=== PATIENT | female | born 1955 | race Asian ===

== ENCOUNTER 2016-10-27 09:03 | Day surgery (SDC) | payer OTHER ==
[2016-10-27] VITALS (7 sets, daily range): BP systolic 108–158; BP diastolic 63–95; PULSE 66–98; RESP 14–20; Ht 152.4 cm; Wt 48.0 kg
[~2016-10-27] VITALS: Ht 152.4 cm; Wt 48.0 kg
[~2016-10-27 09:03] MED LIST: LIDOCAINE 2% (SDV) 5 ML INJ ONE
[2016-10-27] MEDS ORDERED: ESTR-19 PO (09:38)
[2016-10-27] MEDS ORDERED: PANT20TA2 PO (09:42)
[2016-10-27] MEDS ORDERED: LIPA1CAP6 PO (09:42)
[2016-10-27] MEDS ORDERED: CEFAZOLIN 2 GM/50 ML (PMX) 50 ML IVPB SCH (10:00)
[2016-10-27] MEDS ORDERED: SOD CHLORIDE 0.9% 1,000 ML IV SCH (10:00)
[2016-10-27 10:31] LABS: ADD SCAN DIFF NO
[2016-10-27 10:34] LABS: BASOPHILS % 0.4 % (0.0-2.0); EOSINOPHILS # 0.1 10^3/ul (0.0-0.5); EOSINOPHILS % 1.6 % (0.0-7.0); HEMATOCRIT 39.1 % (37.0-47.0); HEMOGLOBIN 13.3 g/dl (12.0-16.0); LYMPHOCYTES # 2.1 10^3/ul (0.8-2.9); LYMPHOCYTES % 43.4 % (15.0-51.0); MEAN CORPUSCULAR HEMOGLOBIN 31.1 pg (29.0-33.0); MEAN CORPUSCULAR VOLUME 91.6 fl (82.0-101.0); MONOCYTE # 0.2 10^3/ul (0.3-0.9); MONOCYTES % 4.3 % (0.0-11.0); NEUTROPHIL # 2.4 10^3/ul (1.6-7.5); NEUTROPHILS % 50.1 % (39.0-77.0); PLATELET COUNT 240 10^3/UL (140-415); RED BLOOD COUNT 4.27 10^6/ul (4.20-5.40); RED CELL DISTRIBUTION WIDTH 11.3 % (11.5-14.5); WHITE BLOOD COUNT 4.9 10^3/ul (4.8-10.8)
--- NOTE | 2016-10-27 10:36 | RADRPT ---
PROCEDURE: Chest Radiograph. CLINICAL INDICATION: Preop. Left flank mass resection. TECHNIQUE: Single frontal chest radiograph. COMPARISON: None available FINDINGS: The cardiomediastinal silhouette is within normal limits. No infiltrate or effusion is seen. Th e bones are intact. Tiny linear hyperdensities overlying the bilateral supraclavicular regions are related to prior acupuncture. IMPRESSION: 1. No evidence of active cardiopulmonary disease. RPTAT: AA .Mason Conklin MD, MD Date Time Electronically viewed and signed by .Mason Conklin MD, on 10/27/2016 10:36 .B/
[2016-10-27 10:50] LABS: ALBUMIN 4.1 g/dl (3.3-4.9)
[2016-10-27 10:51] LABS: INR 0.92; PROTIME 12.4 Sec (12.2-14.2)
[2016-10-27 10:52] LABS: ALBUMIN/GLOBULIN RATIO 1.32; BILIRUBIN,INDIRECT 0.2 mg/dl (0-1.1); BILIRUBIN,TOTAL 0.2 mg/dl (0.2-1.3); PARTIAL THROMBOPLASTIN TIME 25.4 Sec (25.0-35.0); TOTAL PROTEIN 7.2 g/dl (6.1-8.1)
[2016-10-27 11:01] LABS: CALCIUM 8.9 mg/dl (8.4-10.2); CREATININE 0.59 mg/dl (0.44-1.00)
[2016-10-27] MEDS ORDERED: PROPOFOL 20 ML ONE (11:15)
[2016-10-27] MEDS ORDERED: ROCURONIUM 50 MG INJ ONE (11:15)
[2016-10-27] MEDS ORDERED: CEFAZOLIN 1 GM INJ ONE (11:15)
[2016-10-27] MEDS ORDERED: NEOSTIGMINE 3 MG/3 ML SYRINGE ONE (11:15)
[2016-10-27] MEDS ORDERED: GLYCOPYRROLATE 0.4 MG INJ ONE (11:15)
[2016-10-27] MEDS ORDERED: FENTAnyl 50 MCG/ML VIAL ONE (11:15)
[2016-10-27] MEDS ORDERED: MIDAZOLAM 1 MG/ML 2 ML INJ ONE (11:15)
[2016-10-27] MEDS ORDERED: ONDANSETRON 4 MG INJ ONE (11:15)
[2016-10-27] MEDS ORDERED: DEXAMETHASONE 4 MG/ML 1 ML INJ ONE (11:16)
--- NOTE | 2016-10-27 11:32 | RADRPT ---
Vent Rate: 65 bpm RR Interval: 0 msec SD Interval: 190 msec QRS Duration: 94 msec QT Interval: 436 msec QTC Interval: 453 msec P-R-T Filion: 78 - 94 - 81 degrees Normal sinus rhythm Rightward axis Borderline ECG Electronically Signed By: Marvin Rawls [id number]
[2016-10-27] MEDS ORDERED: ONDANSETRON 4 MG INJ IV PRN (12:00)
[2016-10-27] MEDS ORDERED: MIDAZOLAM 1 MG/ML 2 ML INJ IV PRN (12:00)
[2016-10-27] MEDS ORDERED: EPHEDrine SULFATE 50 MG/5 ML SYG IV PRN (12:00)
[2016-10-27] MEDS ORDERED: FENTAnyl 50 MCG/ML VIAL IV PRN ×3 (12:00)
[2016-10-27] MEDS ORDERED: hydrALAzine 20 MG INJ IV PRN (12:00)
[2016-10-27] MEDS ORDERED: HYDROmorphONE (0.2 MG/ML) 10ML SYG IV PRN ×3 (12:00)
[2016-10-27] MEDS ORDERED: DIPHENHYDRAMINE 50 MG INJ IV PRN (12:00)
[2016-10-27] MEDS ORDERED: TRIMETHOBENZAMIDE 100 MG/ML VIAL IM PRN (12:00)
[2016-10-27] MEDS ORDERED: MEPERIDINE 25 MG INJ IV PRN (12:00)
[2016-10-27] MEDS ORDERED: LABETALOL HCL 20MG INJ IV PRN (12:00)
[2016-10-27] MEDS ORDERED: SUGAMMADEX SODIUM 200 MG/2 ML VIAL IV ONE (12:08)
--- NOTE | 2016-10-27 12:49 | OPR ---
DATE OF OPERATION: 10/27/2016 PREOPERATIVE DIAGNOSIS: Left flank mass. POSTOPERATIVE DIAGNOSIS: Left flank mass. OPERATION PERFORMED: Resection of left flank mass with local skin flap advancement closure. ANESTHESIA: General. ANESTHESIOLOGIST: Kenny Martinez MD SURGEON: Augusto Khalil MD WELDING MACHINE OPERATOR ELECTRON BEAM: Dr. Patel INDICATIONS FOR PROCEDURE: The patient is a 61-year-old female who presented with an enlarging mass in her left flank region, clinically most likely a benign etiology, consistent with a lipoma; howev er liposarcoma could not be ruled out. The patient was counseled as to the need for resection of th e tumor and possible skin flap advancement closure. She consented and was scheduled for surgery. DESCRIPTION OF PROCEDURE: The patient was brought to the operating theater, placed under general en dotracheal tube anesthesia. She was then placed in lateral position with the left side up. The lef t flank region was prepped and draped in the usual sterile fashion. The palpable mass was identifie d. A transverse incision was made over the mass in the subcutaneous space. A tumor mass was identi fied, clinically consistent with probable lipoma, rule out liposarcoma. The mass was meticulously d issected from the surrounding tissues and removed and sent for pathologic analysis. The skin was fu rther mobilized by elevating both anteriorly and posteriorly off of the underlying fascia. The 2 ar eas were then rotated together and reapproximated with 2-0 nylon sutures in vertical mattress fashio n. The patient tolerated procedure well. The estimated blood loss was 10 mL. There were no compli cations. Sterile dressing was then applied, and the patient was transported in stable condition to the recovery room. Dictated By: AUGUSTO KHALIL MD TL/SANDRA Conf#: [id number] DID#: [id number]
[2016-10-27] MEDS ORDERED: HYDROCODONE/APAP (5/325) TAB PO ONE (13:00)
== END 2016-10-27 13:58 | disposition home or self-care (01) ==
LOC: SDS 09:03 → EDBD 09:03 → SDS 13:58
PROVIDERS: ATTEND Surgery Surgical Oncology
DX: D17.5 Benign lipomatous neoplasm of intra-abdominal organs (principal)
CPT/HCPCS: 14000; 71010; 80053; 85025; 85610; 85730; 88307; 93005; J0690; J1100; J2250; J2405; J3010; Z7512; Z7610; J2710